=== PATIENT | female | born 1980 | race African-American/Black ===

== ENCOUNTER 2017-10-15 04:58 | Day surgery (SDC) | payer OTHER ==
[2017-10-11 16:47] VITALS: BMI 39.8
[2017-10-15] MEDS ORDERED: MIDAZOLAM HCL 2 MG/2 ML SINGLE DOSE VIAL ONE (11:25)
[2017-10-15] MEDS ORDERED: PROPOFOL 20 ML ONE ×2 (11:25)
[2017-10-15] MEDS ORDERED: LIDOCAINE HCL/PF 2% SDV 5ML VIAL ONE (11:25)
--- NOTE | 2017-10-15 11:39 | HP ---
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: Alzheimer's, CVA, Dementia, Migraine, Multiple Sclerosis, Peripheral Neuropathy, Parkinson's, Seizure, Syncope, TIA, Vertigo, Other Cardiovascular: No: AFIB, Aneurysm, Aortic Insufficiency, Aortic Stenosis, CAD, CHF, Deep Vein Thrombosis, HTN, Hyperlipdemia, WI, Mitral Insufficiency, Mitral Stenosis, Murmur, Pulmonary Hypertension, Other Pulmonary: No: Asthma, Bronchitis, Cancer, COPD, O2 Dependent, Pneumonia, Previously Intubated, Pulmonary Embolus, Pulmonary Fibrosis, Sleep Apnea, Other Gastrointestinal: No: Ascites, Cancer, Constipation, Crohn's Disease, Diverticulitis, Diverticulosis, Esophageal Varices, Gastritis, GERD, GI Bleed, Hemorrhoids, Hiatal Hernia, Inflamatory Bowel Disease, Irritable Bowel Disease, Pancreatitis, Peptic Ulcer Disease, Ulcerative Colitis, Other Hepatobiliary: No: Cirrhosis, Cholelithiasis, Cholecystitis, Choledocholithiasis , Hepatitis A, Hepatitis B, Hepatitis C, Other Renal/: No: Renal Failure, Renal Inusuff, BPH, Cancer, Hematuria, Hemodialysis , Neurogenic Bladder, Renal Calculi, UTI, Other ...Para: 1 Heme/Onc: Yes: Anemia Infectious Disease: No: AIDS, C-Diff, Herpes Zoster, HIV, MRSA, STD's, Tuberculosis, VREF, Other Psych: No: Addictions, Anxiety, Bipolar, Depression, Panic, Psychosis, Schizophrenia, Other Musculoskeletal: No: Bursitis, Chronic low back pain, Hemiparesis, Hemiplegia, Osteoarthritis, Paraplegia, Other Rheumatology: No: Fibromyalgia, Gout, Lupus, Rheumatoid Arthritis, Sarcoidosis, Vasculitis, Other ENT: No: Allergic Rhinitis, Sinusitis, Other Endocrine: No: G[place]ch[place]'s Disease, Eliu's Disease, Diabetes Insipidus, Diabetes Mellitus, Hyperparathyroidism, Hyperthyroidism, Hypothyroidism, Osteopenia, SIADH, Other Dermatology: No: Basal Cell, Cellulitis, Eczema, Melanoma, Psoriasis, Squamous Cell, Other - Past Surgical History Past Surgical History: Yes: Hx Myomectomy: No Hx Transabdominal Cerclage: No Additional Surgical History: Excision of axillary HS - Smoking History Smoking history: Never smoked - Alcohol/Substance Use Hx Alcohol Use: Yes (occ) Home Medications - Allergies Allergies/Adverse Reactions: Allergies Allergy/AdvReac Type Severity Reaction Status Date / Time No Known Allergies Allergy Verified 10/15/17 11:01 - Home Medications Home Medications: Ambulatory Orders Docusate Sodium [Colace] 100 mg PO BID 10/11/17 Ferrous Sulfate [Iron] 325 mg PO BID 10/11/17 Family Disease History - Family Disease History Family History: Unremarkable Review of Systems - Review of Systems Constitutional: reports: No Symptoms, Other (obese) Eyes: reports: No Symptoms HENT: reports: No Symptoms Neck: reports: No Symptoms Cardiovascular: reports: No Symptoms Respiratory: reports: No Symptoms Gastrointestinal: reports: No Symptoms Genitourinary: reports: No Symptoms Breasts: reports: No Symptoms Reported Musculoskeletal: reports: No Symptoms Integumentary: reports: No Symptoms Neurological: reports: No Symptoms Endocrine: reports: No Symptoms Hematology/Lymphatic: reports: No Symptoms Psychiatric: reports: No Symptoms Pain Intensity: 0 Physical Exam-RAIL MAINTENANCE WORKER Vital Signs: Vital Signs Temperature 98.3 F 10/15/17 11:00 Pulse Rate 72 10/15/17 11:00 Respiratory Rate 20 10/15/17 11:00 Blood Pressure 126/60 10/15/17 11:00 O2 Sat by Pulse Oximetry (%) 100 10/15/17 10:57 Constitutional: Yes: Well Nourished, No Distress, Calm, Obese Eyes: Yes: WNL, Conjunctiva Clear HENT: Yes: WNL, Atraumatic, Normocephalic Neck: Yes: WNL, Supple, Trachea Midline Cardiovascular: Yes: WNL, Regular Rate and Rhythm Respiratory: Yes: WNL, Regular, CTA Bilaterally Gastrointestinal: Yes: WNL, Normal Bowel Sounds, Soft, Abdomen, Obese ...Rectal Exam: Yes: Deferred Renal/: Yes: WNL Pelvis: Yes: WNL External Genitalia: Yes: Normal Internal Exam Deferred: No Vaginal Exam: Yes: Normal Cervix: Yes: Normal Uterus: Yes: Enlarged Adnexa: Normal: Left, Right Musculoskeletal: Yes: WNL Extremities: Yes: WNL Edema: No Integumentary: Yes: WNL Neurological: Yes: WNL, Alert, Oriented ...Motor Strength: WNL Psychiatric: Yes: WNL, Alert, Oriented Imaging - Results Ultrasound: Report Reviewed Assessment/Plan 37yo P1 with menorrhagia, admitted for hysteroscopy, D&C, and endometrial ablation. We had discussed the risks, benefits, alternatives of surgery at length including but not limited to infection, bleeding, scarring, perforation, amenorrhea, infertility, hysterectomy, etc. We also discussed the specific risks of thermal ablation including thermal injury, and failed ablation. The pt verbalized understanding and requested to proceed with surgery. I emphasized that all surgeries have risks and no guarantees can be provided
[2017-10-15] MEDS ORDERED: ceFAZolin SODIUM 1 GM VIAL ONE (11:42)
[2017-10-15] MEDS ORDERED: ceFAZolin SODIUM 1 GM VIAL IVPB ONE (11:47)
[2017-10-15] MEDS ORDERED: DEXAMETHASONE SOD PHOSPHATE 4 MG/1 ML VIAL ONE (12:00)
[2017-10-15] MEDS ORDERED: KETOROLAC TROMETHAMINE 30 MG/1 ML VIAL ONE (12:15)
[2017-10-15] MEDS ORDERED: MEPERIDINE HCL CARPU-JECT 25 MG/1 ML DISP.SYRIN ONE (12:39)
[2017-10-15] MEDS ORDERED: ONDANSETRON 4 MG/2 ML VIAL IVPUSH PRN (12:42)
[2017-10-15] MEDS ORDERED: PROMETHAZINE HCL 25 MG/1 ML VIAL IVPUSH PRN (12:42)
[2017-10-15] MEDS ORDERED: oxyCODONE HCL 5 MG TABLET PO PRN (12:42)
[2017-10-15] MEDS ORDERED: MEPERIDINE HCL CARPU-JECT 25 MG/1 ML DISP.SYRIN IVPUSH ONE (12:45)
[2017-10-15] MEDS ORDERED: LACTATED RINGERS SOLUTION 1,000 ML IV SCH (12:45)
--- NOTE | 2017-10-15 13:05 | OP ---
Operative Note - Note: Operative Date: 10/15/17 Pre-Operative Diagnosis: Menorrhagia, anemia, fibroid uterus Operation: Hysteroscopy, D&C, endometrial ablation Findings: Mildly enlarged uterus, no lesions w/in endometrial cavity Post-Operative Diagnosis: Same as Pre-op Surgeon: Ruben Nolen Anesthesiologist/PLACEMENT ASSISTANT: Sindy Whitten Anesthesia: General Specimens Removed: Endometrial curettings Estimated Blood Loss (mls): 30 Blood Volume Replaced (mls): 0 Fluid Volume Replaced (mls): 500 Operative Report Dictated: Yes
[2017-10-15] MEDS ORDERED: oxyCODONE HCL 5 MG TABLET ONE (14:56)
[2017-10-15 15:08] VITALS: TEMP 98.6
[2017-10-15] MEDS ORDERED: ONDANSETRON 4 MG/2 ML VIAL ONE (16:02)
[2017-10-15] MEDS ORDERED: ACETAMINOPHEN 325 MG TABLET (FP) ONE (16:15)
[2017-10-15 17:17] VITALS: BP 109/69; PULSE 65
--- NOTE | 2017-10-16 09:05 | OP ---
DATE OF OPERATION: 10/15/2017 PREOPERATIVE DIAGNOSES: Menorrhagia, anemia, fibroid uterus. POSTOPERATIVE DIAGNOSES: Menorrhagia, anemia, fibroid uterus. PROCEDURE: Hysteroscopy, dilatation and curettage, endometrial ablation with [place] ThermAblator ([employer]). SURGEON: Ruben Nolen MD ANESTHESIOLOGIST: Sindy Whitten MD ANESTHESIA: General. COMPLICATIONS: None. PATHOLOGY: Endometrial curettings. ESTIMATED BLOOD LOSS: 30 mL FLUID REPLACED: 500 mL FINDINGS: Examination under anesthesia revealed a mildly enlarged uterus. Hysteroscopy revealed a slightly enlarged uterine cavity, sounding to 9 cm. No endometrial lesions. Uncomplicated endometrial ablation under direct visualization. DESCRIPTION OF PROCEDURE: The patient was met preoperatively. Risks, benefits, and alternatives of surgery were discussed in details. All questions were answered. The patient was then brought to the OR with the IV running. She was placed on a surgical table in the supine position. The patient was then given general anesthesia without complications. Once the anesthesia was established, the patient was placed in a dorsal lithotomy position using adjustable Amos stirrups. She was examined under anesthesia with the findings as described above. The timeout procedure was conducted as per standard protocol. The patient was then prepped and draped in the usual sterile fashion. A weighted speculum was introduced inside the vagina with good visualization of the cervix. The anterior cervical lip was grasped with a single-tooth tenaculum. The cervix was dilated to accommodate size 25 Johnson dilator. Endometrial curettage was then performed with a sharp curette, and the tissue was sent to Pathology for evaluation. Hysteroscopy was then performed with the findings as described above. Hysteroscopic endometrial ablation was then performed using HTA device from [employer]. The entire hysteroscopic ablation was performed under direct visualization in real time. There were no complications. The entire cycle was completed without incident. The patient tolerated the procedure well. Once the procedure was completed, all of the instruments were removed from the patient. Sponge, lap, instrument counts were correct. The patient was returned to supine position and transferred to recovery room, awake and stable. Trish [id number]
--- NOTE | 2017-10-18 09:33 | PATH ---
Surgical Pathology Report Patient Name: IVÁN BISHOP [facility]. Rec. #: [id number] /Age/Gender: 1980 (Age: 37) / F Account: [id number] Location: [facility] SURGICAL Taken: 10/15/2017 Received: 10/15/2017 Reported: 10/18/2017 Physicians: Ruben Nolen M.D. Specimen(s) Received ENDOMETRIAL CURETTINGS Clinical History Menorrhagia, morbid obesity Final Diagnosis ENDOMETRIUM, CURETTING: SECRETORY ENDOMETRIUM. NO ENDOMETRIAL HYPERPLASIA OR CARCINOMA IDENTIFIED. Electronically Signed Khris Parra M.D. Gross Description Received in formalin labeled "endometrial curettings," is a 1.8 x 1.4 x 0.3 cm aggregate of chavez soft tissue fragments admixed with blood-tinged mucous. The formalin is filtered and the specimen is entirely submitted in one cassette. /10/15/2017 [place]10/15/2017
== END 2017-10-15 17:15 | disposition home or self-care (01) ==
LOC: JASU-SURG 04:58
PROVIDERS: ATTEND Obstetrics & Gynecology
PROC: 0U5B8ZZ Destruction of Endometrium, Via Natural or Artificial Opening Endoscopic (ICD-10-PCS; principal; 2017-10-15 11:00)
PROC: 0UDB8ZX Extraction of Endometrium, Via Natural or Artificial Opening Endoscopic, Diagnostic (ICD-10-PCS; 2017-10-15 11:00)
DX: N92.0 Excessive and frequent menstruation with regular cycle (principal); D64.9 Anemia, unspecified; D25.9 Leiomyoma of uterus, unspecified
CPT/HCPCS: 36415; 84703; 86850; 86900; 86901; 88305-TC; 94760

== ENCOUNTER 2018-11-14 06:15 | Inpatient (IN) | payer OTHER ==
[2018-11-08 13:58] VITALS: BMI 43.2
[2018-11-14] MEDS ORDERED: BUPIVACAINE HCL/PF (5 MG/ML) 30 ML VIAL IJ ONE (07:31)
[2018-11-14] MEDS ORDERED: MIDAZOLAM HCL 2 MG/2 ML SINGLE DOSE VIAL ONE (07:31)
--- NOTE | 2018-11-14 07:41 | HP ---
Admitting History and Physical - Admission Chief Complaint: Morbid obesity History Source: Patient Limitations to Obtaining History: No Limitations - Past Medical History ...LMP: 07/19/18 ...: No Heme/Onc: Yes: Anemia - Past Surgical History Past Surgical History: Yes: Additional Past Surgical History: Endometrial ablation Right axillary hydraadenitis surgery - Smoking History Smoking history: Never smoked Have you smoked in the past 12 months: No - Alcohol/Substance Use Hx Alcohol Use: Yes (SOCIALLY) Home Medications - Allergies Allergies/Adverse Reactions: Allergies Allergy/AdvReac Type Severity Reaction Status Date / Time No Known Drug Allergies Allergy Verified 11/08/18 13:50 - Home Medications Home Medications: Ambulatory Orders Famotidine [Pepcid] 20 mg PO BID #60 tablet 11/14/18 Oxycodone HCl/Acetaminophen [Percocet 5-325 mg Tablet] 1 - 2 tab PO Q6H #28 tab MDD 4 11/14/18 Family Disease History - Family Disease History Family History: Denies Review of Systems - Review of Systems Constitutional: denies: Chills, Fever Neck: reports: No Symptoms Cardiovascular: reports: No Symptoms Respiratory: reports: No Symptoms Gastrointestinal: reports: No Symptoms Neurological: reports: No Symptoms Pain Intensity: 0 Physical Examination Vital Signs: Vital Signs Temperature 98.5 F 11/14/18 06:32 Pulse Rate 89 11/14/18 06:32 Respiratory Rate 18 11/14/18 06:32 Blood Pressure 105/68 11/14/18 06:32 O2 Sat by Pulse Oximetry (%) Constitutional: Yes: Calm, Obese Cardiovascular: Yes: WNL Respiratory: Yes: Regular Gastrointestinal: Yes: Soft, Abdomen, Obese. No: Tenderness Neurological: Yes: Alert, Oriented Problem List - Problems (1) Morbid (severe) obesity due to excess calories Code(s): E66.01 - MORBID (SEVERE) OBESITY DUE TO EXCESS CALORIES (2) BMI 40.0-44.9, adult Code(s): Z68.41 - BODY MASS INDEX (BMI) 40.0-44.9, ADULT Assessment/Plan Laparoscopic possible open vertical sleeve gastrectomy possible liver biopsy, possible endoscopy
[2018-11-14] MEDS ORDERED: BUPIVACAINE HCL/PF 2.5 MG/ML - 30 ML VIAL IJ ONE (07:51)
[2018-11-14] MEDS ORDERED: fentaNYL CITRATE 250 MCG/5 ML VIAL ONE (08:08)
[2018-11-14] MEDS ORDERED: ceFAZolin SODIUM 1 GM VIAL ONE ×3 (08:24→08:25)
[2018-11-14] MEDS ORDERED: SUCCINYLCHOLINE CHLORIDE 200 MG/10 ML VIAL ONE (08:25)
[2018-11-14] MEDS ORDERED: ONDANSETRON 4 MG/2 ML VIAL ONE ×2 (08:25→10:23)
[2018-11-14] MEDS ORDERED: PROPOFOL 20 ML ONE ×2 (08:25)
[2018-11-14] MEDS ORDERED: DEXAMETHASONE SOD PHOSPHATE 4 MG/1 ML VIAL ONE (08:25)
[2018-11-14] MEDS ORDERED: ROCURONIUM BROMIDE 50 MG/5 ML VIAL ONE (08:25)
[2018-11-14] MEDS ORDERED: GLYCOPYRROLATE 0.2 MG/1 ML VIAL ONE ×3 (09:05)
[2018-11-14] MEDS ORDERED: NEOSTIGMINE METHYLSULFATE 0.5 MG/ML - 10 ML MDV ONE (09:05)
[2018-11-14] MEDS ORDERED: BUPIVACAINE HCL/PF 0.25% (2.5MG/ML) 10 ML VIAL IJ ONE (09:22)
--- NOTE | 2018-11-14 09:26 | OP ---
Operative Note - Note: Operative Date: 11/14/18 Pre-Operative Diagnosis: Morbid obesity. BMI 43.3 Operation: Laparoscopic vertical sleeve gastrectomy Post-Operative Diagnosis: Same as Pre-op Surgeon: Wes Peterson Computer Assistant: Petros Ley Anesthesia: General Specimens Removed: Greater curvature of stomach Estimated Blood Loss (mls): 30 Drains & Tubes with Location: 36 Fr Bougie Operative Report Dictated: Yes
[2018-11-14] MEDS ORDERED: ONDANSETRON 4 MG/2 ML VIAL IVPUSH SCH (09:30)
[2018-11-14] MEDS ORDERED: FAMOTIDINE 20 MG/50 ML IVPB 20 MG/50 ML MG IVPB ONE (09:44)
[2018-11-14] MEDS: METOCLOPRAMIDE HCL INJECTION 10 MG/2 ML VIAL IVPUSH SCH ×4 (09:50→21:51)
[2018-11-14] MEDS: ACETAMINOPHEN 1000 MG/100 ML VIAL (NON FORMULARY) IVPB SCH ×4 (09:55→21:50)
[2018-11-14] MEDS ORDERED: FAMOTIDINE 20 MG PREMIXED IVPB IVPB ONE (10:25)
[2018-11-14] MEDS ORDERED: HYDROmorphone HCL CARPU-JECT 1 MG/1 ML DISP.SYRIN IVPUSH PRN (10:26)
[2018-11-14] MEDS: SODIUM CHLORIDE 1,000 ML IV SCH (11:19)
[2018-11-14] MEDS: FAMOTIDINE 20 MG/50 ML IVPB 20 MG/50 ML MG IVPB SCH ×2 (11:20→21:51)
[2018-11-14 11:39] LABS: HEMATOCRIT 34.4 % (32.4-45.2); HEMOGLOBIN 11.6 GM/dl (10.7-15.3); MCHC 33.6 g/dl (32.0-36.0); MEAN CELL VOLUME 92.1 fl (80-96); MEAN PLT VOLUME 8.4 fl (7.5-11.1); PLATELET COUNT 224 K/MM3 (134-434); RBC 3.74 M/mm3 (3.60-5.2); RDW 12.8 % (11.6-15.6); WHITE BLOOD COUNT 10.7 K/mm3 (4.0-10.8)
[2018-11-14 11:41] LABS: ALBUMIN 3.3 g/dl (3.4-5.0); ALK PHOS 50 U/L (45-117); ANION GAP 10 MMOL/L (8-16); BILIRUBIN,TOTAL 0.5 mg/dl (0.2-1); BLOOD UREA NITROGEN 12 mg/dl (7-18); CALCIUM 8.3 mg/dl (8.5-10); CHLORIDE 97 mmol/L (98-107); CO2 21 mmol/L (21-32); CREATININE 0.6 mg/dl (0.55-1.3); GLUCOSE,RANDOM 101 mg/dl (74-106); POTASSIUM 3.4 mmol/L (3.5-5.1); SGOT/AST 26 U/L (15-37); SGPT/ALT 22 U/L (13-61); SODIUM 128 mmol/L (136-145); TOT PROT 6.9 g/dl (6.4-8.2)
[2018-11-14] MEDS: HYDROmorphone HCL CARPU-JECT 1 MG/1 ML DISP.SYRIN IVPB PRN ×2 (11:41→19:59)
--- NOTE | 2018-11-14 11:57 | SPEC ---
DATE OF OPERATION: 11/14/2018 SURGEON: eWs Peterson MD INSURANCE PREMIUM AUDITOR: Petros Ley MD PREOPERATIVE DIAGNOSES: 1. Morbid obesity. 2. Body mass index of 43.3. POSTOPERATIVE DIAGNOSES: 1. Morbid obesity. 2. Body mass index of 43.3. PROCEDURE: Laparoscopic vertical sleeve gastrectomy. SPECIMEN: Greater curvature of the stomach. ESTIMATED BLOOD LOSS: 30 mL. DRAINS: None. ANESTHESIA: GET. BOUGIE SIZE: 36-Swiss. REASON FOR PROCEDURE: This is a 38-year-old female who presents to the office for weight loss options. After discussing different options, decided to proceed with laparoscopic, possible open, vertical sleeve gastrectomy with possible liver biopsy, possible upper endoscopy. RISKS AND BENEFITS: After describing the different options for weight loss management, the patient decided to proceed with a laparoscopic, possible open vertical sleeve gastrectomy. The patient was seen by the respective subspecialties and cleared for surgery. The risks and benefits of the procedure were explained. These included bleeding, infection, hernia, HI, DVT, PE, injury to surrounding structures including the liver, colon, bowel, spleen, esophagus, vessel injury, nerve injury, weight regain, gastric leak, staple line leak, sleeve leak, obstruction, vitamin deficiency, hair loss, and as some of the possible complications. The patient understood and signed informed consent. DESCRIPTION OF PROCEDURE: The patient was placed supine on the operating room table. The patient underwent general endotracheal intubation. The arms were brought out at 90 degrees and secured. A foot board was placed, and the legs were secured laterally with padding. The abdomen was prepped and draped in the usual sterile fashion. A timeout was performed. An incision was made in the left upper quadrant, and a Veress needle inserted. Pneumoperitoneum was established. Subsequently, the Veress needle was removed, and a 5-mm trocar was placed under direct visualization with the laparoscope. The laparoscopic camera was inserted, and inspection of the abdominal cavity was performed. An incision was made in the supraumbilical region, and a 15-mm trocar placed under direct visualization. A 5-mm trocar was then placed in the right upper quadrant, and a 5-mm trocar placed below the left subcostal margin. A stab wound was made in the subxiphoid area, and a Aleida clamp inserted and removed to dilate the tract. A Ayse liver retractor was inserted. The post was secured at the bedside by the nursing staff. The patient was placed in steep reverse Trendelenburg position. The Ayse liver retractor was used to secure the liver towards the anterior abdominal wall. The pylorus was identified and 6 cm proximal to it, the lesser sac was entered using the Ligasure device. All lateral attachments to the greater curvature of the stomach including the short gastric vessels were ligated using the Ligasure device toward the gastrosplenic and gastrophrenic ligaments. Once this was done in its entirety, it was confirmed that all tubes within the nasal or oropharyngeal cavity including a temperature probe was removed by Anesthesia. The bougie was then inserted by Anesthesia. Transection of the stomach was then begun staying adjacent to the bougie but away from the angularis. Transection of the stomach was performed near the portion of the stomach where the lesser sac was entered. Two laparoscopic Endo-OKSANA black loads were used at this location. Laparoscopic Endo-OKSANA purple loads were then used for the remainder of the transection until the greater curvature of the stomach was fully transected. This was done staying close to the bougie. Care was taken to stay away from the angle of His cephalad. The staple line was then inspected. Hemostasis was identified. A leak test was then performed. The stomach was clamped distally to the staple line. Irrigation solution was placed in the left upper quadrant, and air insufflated by Anesthesia into the sleeve. No leaks were identified, and no obstruction was identified. This was done throughout the entirety of the staple line. In addition, an upper endoscopy was performed. The endoscope was placed into the patients mouth and the entirety of the esophagus, GE junction, gastric pouch and staple line were inspected. No obstruction or leak was noted. The stomach was suctioned and the endoscope removed fully intact. At this point, the irrigation solution was suctioned, and again hemostasis noted. The 15-mm supraumbilical trocar was then removed, and the specimen removed from the site using a sponge stick marie. The specimen was inspected, and a Veress needle inserted. The specimen insufflated adequately, and no leak was identified. The staple line was noted to be intact. A Valente Salvador device was then used to close the fascia with a 0 Vicryl suture at this site. Again, hemostasis was noted. The Ayse liver retractor was then removed under direct visualization. Pneumoperitoneum was desufflated, and the fascial sutures were secured. Hemostasis was noted at all incision sites, and Marcaine was injected at all incision sites. All incision sites were closed using 4-0 Biosyn. Sterile dressings were applied. The patient tolerated the procedure well, and was transferred to the recovery room in stable condition. The patient was transferred to telemetry for further monitoring. Trish [id number]
[2018-11-14] MEDS: ONDANSETRON 4 MG/2 ML VIAL IVPUSH SCH ×3 (15:08→21:51)
[2018-11-14] MEDS: ENOXAPARIN NA (PORCINE) 40 MG/0.4 ML DISP.SYRIN SQ SCH (21:51)
[2018-11-15] MEDS: ONDANSETRON 4 MG/2 ML VIAL IVPUSH SCH ×3 (01:59→10:32)
[2018-11-15] MEDS: ACETAMINOPHEN 1000 MG/100 ML VIAL (NON FORMULARY) IVPB SCH (03:04)
[2018-11-15] MEDS: METOCLOPRAMIDE HCL INJECTION 10 MG/2 ML VIAL IVPUSH SCH ×2 (03:04→10:28)
[2018-11-15 05:32] VITALS: BP 109/59; PULSE 58; TEMP 98.9
[2018-11-15] MEDS: HYDROmorphone HCL CARPU-JECT 1 MG/1 ML DISP.SYRIN IVPB PRN (06:54)
[2018-11-15 08:06] LABS: HEMATOCRIT 35.6 % (32.4-45.2); HEMOGLOBIN 11.9 GM/dl (10.7-15.3); MCH 30.8 pg (25.7-33.7); MCHC 33.3 g/dl (32.0-36.0); MEAN CELL VOLUME 92.4 fl (80-96); PLATELET COUNT 253 K/MM3 (134-434); RBC 3.86 M/mm3 (3.60-5.2); RDW 12.8 % (11.6-15.6); WHITE BLOOD COUNT 8.1 K/mm3 (4.0-10.8)
[2018-11-15 08:15] LABS: ALBUMIN 3.2 g/dl (3.4-5.0); ALK PHOS 43 U/L (45-117); ANION GAP 7 MMOL/L (8-16); BILIRUBIN,TOTAL 0.7 mg/dl (0.2-1); BLOOD UREA NITROGEN 9 mg/dl (7-18); CALCIUM 8.2 mg/dl (8.5-10); CHLORIDE 105 mmol/L (98-107); CO2 24 mmol/L (21-32); CREATININE 0.7 mg/dl (0.55-1.3); GLUCOSE,RANDOM 76 mg/dl (74-106); POTASSIUM 3.5 mmol/L (3.5-5.1); SGOT/AST 23 U/L (15-37); SGPT/ALT 19 U/L (13-61); SODIUM 136 mmol/L (136-145)
[2018-11-15] MEDS ORDERED: oxyCODONE HCL 5 MG TABLET PO PRN (09:36)
[2018-11-15] MEDS ORDERED: SODIUM CHLORIDE 1,000 ML IV SCH (09:45)
[2018-11-15 10:11] LABS: TOT PROT 6.9 g/dl (6.4-8.2)
[2018-11-15] MEDS: FAMOTIDINE 20 MG/50 ML IVPB 20 MG/50 ML MG IVPB SCH (10:28)
[2018-11-15] MEDS: ENOXAPARIN NA (PORCINE) 40 MG/0.4 ML DISP.SYRIN SQ SCH (10:29)
[2018-11-15] MEDS: SODIUM CHLORIDE 1,000 ML IV SCH (10:30)
--- NOTE | 2018-11-15 11:28 | PN ---
Progress Note (short form) - Note Progress Note: POD 1 No pain No nausea Vital Signs Period Temp Pulse Resp BP Sys/Bernardo Pulse Ox Last 24 Hr 98.3 F-99.0 F 56-75 17-18 103-130/56-83 97-100 Abd soft CBC,CMP WBC 8.1 K/mm3 (4.0-10.8) 11/15/18 07:14 RBC 3.86 M/mm3 (3.60-5.2) 11/15/18 07:14 Hgb 11.9 GM/dl (10.7-15.3) 11/15/18 07:14 Hct 35.6 % (32.4-45.2) 11/15/18 07:14 MCV 92.4 fl (80-96) 11/15/18 07:14 MCH 30.8 pg (25.7-33.7) 11/15/18 07:14 MCHC 33.3 g/dl (32.0-36.0) 11/15/18 07:14 RDW 12.8 % (11.6-15.6) 11/15/18 07:14 Plt Count 253 K/MM3 (134-434) 11/15/18 07:14 MPV 9.0 fl (7.5-11.1) 11/15/18 07:14 Sodium 136 mmol/L (136-145) 11/15/18 07:14 Potassium 3.5 mmol/L (3.5-5.1) 11/15/18 07:14 Chloride 105 mmol/L (98-107) 11/15/18 07:14 Carbon Dioxide 24 mmol/L (21-32) 11/15/18 07:14 Anion Gap 7 MMOL/L (8-16) L 11/15/18 07:14 BUN 9 mg/dl (7-18) 11/15/18 07:14 Creatinine 0.7 mg/dl (0.55-1.3) 11/15/18 07:14 Creat Clearance w eGFR 94.16 (>60) 11/15/18 07:14 Random Glucose 76 mg/dl (74-106) 11/15/18 07:14 Calcium 8.2 mg/dl (8.5-10) L 11/15/18 07:14 Total Bilirubin 0.7 mg/dl (0.2-1) 11/15/18 07:14 AST 23 U/L (15-37) 11/15/18 07:14 ALT 19 U/L (13-61) 11/15/18 07:14 Alkaline Phosphatase 43 U/L (45-117) L 11/15/18 07:14 Total Protein 6.9 g/dl (6.4-8.2) 11/15/18 07:14 Albumin 3.2 g/dl (3.4-5.0) L 11/15/18 07:14 UGI: no leak/obstruction Clears Dischareg home Problem List - Problems (1) Morbid (severe) obesity due to excess calories Code(s): E66.01 - MORBID (SEVERE) OBESITY DUE TO EXCESS CALORIES (2) BMI 40.0-44.9, adult Code(s): Z68.41 - BODY MASS INDEX (BMI) 40.0-44.9, ADULT
--- NOTE | 2018-11-16 16:08 | PATH ---
Surgical Pathology Report Patient Name: IVÁN BISHOP Med. Rec. #: [id number] /Age/Gender: 1980 (Age: 38) / F Account: [id number] Location: [facility] MED-SURG Taken: 11/14/2018 Received: 11/14/2018 Reported: 11/16/2018 Physicians: Wes Peterson M.D. Specimen(s) Received GREATER CURVATURE STOMACH Clinical History Morbid obesity Final Diagnosis GREATER CURVATURE STOMACH, LAPAROSCOPIC VERTICAL SLEEVE GASTRECTOMY: SEGMENT OF STOMACH WITH MILD CHRONIC GASTRITIS. IMMUNOSTAINING IS NEGATIVE FOR H. PYLORI ORGANISMS. NEGATIVE FOR INTESTINAL METAPLASIA. Electronically Signed Glenn Tellez M.D. Gross Description Received in formalin, labeled "greater curvature of stomach," is a 65 gram, 18.0 x 2.8 x 2.8 cm. portion of stomach with a stapled margin of resection. The serosa is chavez-christy with minimal attached fat. The mucosa is chavez-pink with normal folds. No mucosal masses are identified. Telecommunications Field Engineer sections are submitted in one cassette. /11/15/2018 [facility]/15/2018
== END 2018-11-15 14:04 | disposition home or self-care (01) | DRG 403 ==
LOC: FM/S 06:15
PROVIDERS: ADMIT Surgery; ATTEND Surgery
PROC: 0DB64Z3 Excision of Stomach, Percutaneous Endoscopic Approach, Vertical (ICD-10-PCS; principal; 2018-11-14 08:00)
DX: E66.01 Morbid (severe) obesity due to excess calories (principal); Z68.41 Body mass index [BMI] 40.0-44.9, adult
CPT/HCPCS: 36415; 74241-TC-FY; 80053; 81025; 85027; 88305-TC; 94760; J0131; J7030

== ENCOUNTER 2021-04-13 11:07 | Emergency (ER) | payer OTHER ==
[2021-04-13 11:40] VITALS: BP 117/77; PULSE 72; TEMP 97.9; BMI 33.4
[2021-04-13] MEDS ORDERED: KETOROLAC TROMETHAMINE 30 MG/1 ML VIAL IM ONE (12:11)
[2021-04-13] MEDS ORDERED: KETOROLAC TROMETHAMINE 30 MG/1 ML VIAL ONE (12:15)
[2021-04-13] MEDS ORDERED: LIDOCAINE 5% TOPICAL PATCH TP ONE (13:11)
[2021-04-13] MEDS ORDERED: CYCLOBENZAPRINE HCL 10 MG TABLET (FP) PO ONE (13:11)
[2021-04-13] MEDS ORDERED: LIDOCAINE 5% TOPICAL PATCH ONE (13:18)
[2021-04-13] MEDS ORDERED: CYCLOBENZAPRINE HCL 10 MG TABLET (FP) ONE (13:19)
[2021-04-13] MEDS ORDERED: LIDOCAINE PATCH REMOVAL MC SCH (22:00)
== END 2021-04-13 13:25 | disposition home or self-care (01) ==
LOC: JERFT 11:07 → JER 11:07 → JERFT 13:25
PROC: 3E023GC Introduction of Other Therapeutic Substance into Muscle, Percutaneous Approach (ICD-10-PCS; principal; 2021-04-13)
DX: S76.112A Strain of left quadriceps muscle, fascia and tendon, initial encounter (principal); X50.9XXA Other and unspecified overexertion or strenuous movements or postures, initial encounter
CPT/HCPCS: 72170-TC-FY; 73502-TC-LT-FY; 99284-25

== ENCOUNTER 2021-09-08 04:23 | Day surgery (SDC) | payer OTHER ==
[2021-09-04 14:04] VITALS: BMI 36.5
[2021-09-08] MEDS ORDERED: MIDAZOLAM HCL 2 MG/2 ML SINGLE DOSE VIAL ONE (14:31)
[2021-09-08] MEDS ORDERED: SUCCINYLCHOLINE CHLORIDE 200 MG/10 ML SYRINGE ONE (14:31)
[2021-09-08] MEDS ORDERED: PROPOFOL 20 ML ONE ×2 (14:31)
[2021-09-08] MEDS ORDERED: ROCURONIUM BROMIDE 50 MG/5 ML SYRINGE ONE (14:54)
[2021-09-08] MEDS ORDERED: ceFAZolin SODIUM 1 GM VIAL IVPB ONE (15:10)
[2021-09-08] MEDS ORDERED: ONDANSETRON 4 MG/2 ML VIAL IVPUSH PRN (16:01)
[2021-09-08 17:20] LABS: BASO % 0.6 % (0-2.0); EOS % 0.8 % (0-4.5); HEMATOCRIT 38.5 % (32.4-45.2); HEMOGLOBIN 12.6 GM/dL (10.7-15.3); LYMPH % 15.4 % (8-40); MCH 30.2 pg (25.7-33.7); MCHC 32.7 g/dl (32.0-36.0); MEAN CELL VOLUME 92.4 fl (80-96); NEUT % 76.2 % (42.8-82.8); PLATELET COUNT 234 10^3/uL (134-434); RBC 4.17 M/mm3 (3.60-5.2); WHITE BLOOD COUNT 9.2 K/mm3 (4.0-10.0)
[2021-09-08 19:08] VITALS: TEMP 98
[2021-09-08 19:33] LABS: BASO % 0.3 % (0-2.0); EOS % 0.5 % (0-4.5); HEMATOCRIT 37.9 % (32.4-45.2); HEMOGLOBIN 12.8 GM/dL (10.7-15.3); LYMPH % 15.8 % (8-40); MCH 31.1 pg (25.7-33.7); MCHC 33.9 g/dl (32.0-36.0); MEAN CELL VOLUME 91.7 fl (80-96); MEAN PLT VOLUME 7.8 fl (7.5-11.1); NEUT % 76.4 % (42.8-82.8); PLATELET COUNT 240 10^3/uL (134-434); RBC 4.13 M/mm3 (3.60-5.2); RDW 12.8 % (11.6-15.6); WHITE BLOOD COUNT 8.9 K/mm3 (4.0-10.0)
[2021-09-08 19:52] VITALS: BP 125/73; PULSE 70
== END 2021-09-08 20:04 | disposition home or self-care (01) ==
LOC: JASU-SURG 04:23
PROVIDERS: ATTEND Obstetrics & Gynecology
PROC: 0UDB8ZX Extraction of Endometrium, Via Natural or Artificial Opening Endoscopic, Diagnostic (ICD-10-PCS; 2021-09-08)
PROC: 0UB98ZZ Excision of Uterus, Via Natural or Artificial Opening Endoscopic (ICD-10-PCS; principal; 2021-09-08 12:30)
DX: D25.0 Submucous leiomyoma of uterus (principal); N92.0 Excessive and frequent menstruation with regular cycle; E66.9 Obesity, unspecified
CPT/HCPCS: 36415; 81025; 82962; 85025; 88305-TC; 94760

== ENCOUNTER 2022-04-14 21:02 | Emergency (ER) | payer OTHER ==
[2022-04-14 21:13] VITALS: BP 107/79; PULSE 74; RESP 20; TEMP 98.1; BMI 33.4
[2022-04-14] MEDS ORDERED: TETRACAINE 0.5% HCL 0.6ML DROPPER.BOTTLE OU ONE (21:21)
[2022-04-14] MEDS ORDERED: FLUORESCEIN NA 1 EA STRIP OU ONE (21:21)
== END 2022-04-14 21:41 | disposition home or self-care (01) ==
LOC: JERFT 21:02
DX: H57.89 Other specified disorders of eye and adnexa (principal)
CPT/HCPCS: 99283-25

== ENCOUNTER 2023-08-31 22:34 | Emergency (ER) | payer OTHER ==
[2023-08-31 22:43] VITALS: BP 106/71; PULSE 72; RESP 18; TEMP 96.6; BMI 27.3
[2023-08-31] MEDS ORDERED: ACETAMINOPHEN 1000 MG/100 ML BAG IVPB ONE (22:52)
[2023-08-31] MEDS ORDERED: SODIUM CHLORIDE 0.9% 500 ML INFUS.BAG IV ONE (22:52)
[2023-08-31] MEDS ORDERED: ACETAMINOPHEN INJECTION 100 ML IVPB ONE (23:06)
[2023-08-31 23:34] LABS: BASO % 0.7 % (0-2.0); EOS % 0.9 % (0-4.5); HEMATOCRIT 42.6 % (32.4-45.2); LYMPH % 17.4 % (8-40); MCH 29.8 pg (25.7-33.7); MCHC 32.8 g/dl (32.0-36.0); MEAN CELL VOLUME 90.9 fl (80-96); MONO % 5.7 % (3.8-10.2); NEUT % 75.3 % (42.8-82.8); PLATELET COUNT 265 10^3/uL (134-434); RBC 4.69 M/mm3 (3.60-5.2); RDW 13.4 % (11.6-15.6); WHITE BLOOD COUNT 11.3 K/mm3 (4.0-10.0)
[2023-08-31 23:51] LABS: POTASSIUM 5.4 mmol/L (3.5-5.1)
[2023-08-31 23:53] LABS: CALCIUM 9.1 mg/dL (8.5-10.1)
[2023-08-31 23:54] LABS: ALBUMIN 3.7 g/dl (3.4-5.0); BLOOD UREA NITROGEN 15.2 mg/dL (7-18); MAGNESIUM 2.1 mg/dL (1.8-2.4)
[2023-08-31 23:57] LABS: CREATININE 0.9 mg/dL (0.55-1.3)
[2023-08-31 23:58] LABS: BILIRUBIN,TOTAL 0.5 mg/dL (0.2-1)
[2023-09-01 01:13] LABS: POTASSIUM 4.5 mmol/L (3.5-5.1)
[2023-09-01 01:15] LABS: ALBUMIN 3.3 g/dl (3.4-5.0); CALCIUM 8.8 mg/dL (8.5-10.1)
[2023-09-01 01:18] LABS: CREATININE 0.8 mg/dL (0.55-1.3); PH,URINE 5.5 (5.0-8.0); URINE APPEARANCE CLEAR; URINE BILIRUBIN NEGATIVE (NEGATIVE); URINE COLOR YELLOW; URINE GLUCOSE (UA) NEGATIVE (NEGATIVE); URINE KETONE 80 (NEGATIVE); URINE NITRITE NEGATIVE (NEGATIVE); URINE PROTEIN 30 (NEGATIVE)
[2023-09-01 01:19] LABS: URINE LEUK ESTERASE NEGATIVE (NEGATIVE)
[2023-09-01 01:20] LABS: BILIRUBIN,TOTAL 0.4 mg/dL (0.2-1); TOT PROT 7.6 g/dl (6.4-8.2)
[2023-09-01] MEDS ORDERED: FAMOTIDINE 20 MG/50 ML IVPB 20 MG/50 ML MG IVPB ONE (02:00)
[2023-09-01] MEDS ORDERED: PANTOPRAZOLE SODIUM 40 MG VIAL IVPUSH ONE (02:01)
== END 2023-09-01 02:11 | disposition home or self-care (01) ==
LOC: JER 22:34
PROC: 3E033NZ Introduction of Analgesics, Hypnotics, Sedatives into Peripheral Vein, Percutaneous Approach (ICD-10-PCS; principal; 2023-08-31)
DX: R55 Syncope and collapse (principal); R20.2 Paresthesia of skin; R20.0 Anesthesia of skin; R51.9 Headache, unspecified; R42 Dizziness and giddiness; R53.1 Weakness
CPT/HCPCS: 36415; 70450-TC; 80053; 81003; 83735; 84439; 84443; 84481; 84484; 84703; 85025; 87086; 93005; 93010; 96374; 99285-25